=== PATIENT | male | born 1975 | race Caucasian/White ===

== ENCOUNTER 2022-08-08 10:22 | Emergency (ER) | payer OTHER ==
[2022-08-08 10:38] VITALS: BMI 27.3
[2022-08-08] MEDS ORDERED: HEPARIN NA (PORCINE) 5,000 UNITS/ML 1ML VIAL IVPUSH ONE (11:03)
[2022-08-08] MEDS ORDERED: ASPIRIN 325 MG TABLET PO ONE (11:03)
[2022-08-08] MEDS ORDERED: morphine CARPU-JECT 4 MG/1 ML DISP.SYRIN IVPUSH ONE (11:11)
[2022-08-08] MEDS ORDERED: ASPIRIN 81 MG CHEWABLE TABLETS ONE (11:12)
[2022-08-08] MEDS ORDERED: HEPARIN NA (PORCINE) 5,000 UNITS/ML 1ML VIAL ONE (11:12)
[2022-08-08] MEDS ORDERED: ATORVASTATIN CA 80 MG TABLET (FP) PO ONE (11:13)
[2022-08-08] MEDS ORDERED: TICAGRELOR 60 MG TABLET PO STA (11:13)
[2022-08-08] MEDS ORDERED: morphine SULFATE 4 MG/ML VIAL ONE (11:16)
[2022-08-08] MEDS ORDERED: ASPIRIN 81 MG CHEWABLE TABLETS PO ONE (11:20)
[2022-08-08] MEDS ORDERED: ATORVASTATIN CA 80 MG TABLET (FP) ONE (11:20)
[2022-08-08] MEDS ORDERED: TICAGRELOR 90 MG TABLET PO ONE (11:20)
[2022-08-08 11:44] LABS: BASO % 0.8 % (0-2.0); EOS % 1.8 % (0-4.5); HEMATOCRIT 45.6 % (35.4-49); HEMOGLOBIN 15.3 GM/dL (11.7-16.9); MCH 32.3 pg (25.7-33.7); MCHC 33.5 g/dl (32.0-35.9); MEAN CELL VOLUME 96.4 fl (80-96); MEAN PLT VOLUME 9.9 fl (7.5-11.1); MONO % 5.3 % (3.8-10.2); NEUT % 46.1 % (42.8-82.8); PLATELET COUNT 197 10^3/uL (134-434); RBC 4.73 M/mm3 (4.00-5.60); RDW 13.7 % (11.9-15.9); WHITE BLOOD COUNT 12.2 K/mm3 (4.0-10.0)
[2022-08-08 11:46] VITALS: BP 123/85; PULSE 100; RESP 20; TEMP 98.2
[2022-08-08 12:09] LABS: CHLORIDE 107 mmol/L (98-107); SODIUM 145 mmol/L (136-145)
[2022-08-08 12:11] LABS: ALBUMIN 3.3 g/dl (3.4-5.0); BLOOD UREA NITROGEN 20.3 mg/dL (7-18); CALCIUM 9.3 mg/dL (8.5-10.1); GLUCOSE,RANDOM 156 mg/dL (74-106)
[2022-08-08 12:12] LABS: ANION GAP 13 MMOL/L (8-16); CO2 25 mmol/L (21-32); LIPASE 143 U/L (73-393)
[2022-08-08 12:14] LABS: SGPT/ALT 31 U/L (13-61)
[2022-08-08 12:15] LABS: CREATININE 1.9 mg/dL (0.55-1.3); SGOT/AST 26 U/L (15-37)
[2022-08-08 12:16] LABS: BILIRUBIN,TOTAL 0.6 mg/dL (0.2-1)
[2022-08-08 12:18] LABS: ALK PHOS 77 U/L (45-117)
[2022-08-08 12:24] LABS: ACTIVATED PTT 28.4 SECONDS (25.2-36.5); INR 1.08 (0.83-1.09); PROTHROMBIN TIME (PATIENT) 12.4 SEC (9.7-13.0)
[2022-08-08 12:25] LABS: LACTIC ACID 6.1 mmol/L (0.4-2.0)
== END 2022-08-08 11:37 | disposition short-term general hospital (02) ==
LOC: JER 10:22
PROC: 3E033GC Introduction of Other Therapeutic Substance into Peripheral Vein, Percutaneous Approach (ICD-10-PCS; principal; 2022-08-08)
PROC: 3E033NZ Introduction of Analgesics, Hypnotics, Sedatives into Peripheral Vein, Percutaneous Approach (ICD-10-PCS; 2022-08-08)
DX: I21.3 ST elevation (STEMI) myocardial infarction of unspecified site (principal)
CPT/HCPCS: 36415; 71045-TC-FY; 80053; 80307; 82962; 83605; 83690; 84484; 85025; 85610; 85730; 93005; 93010; 99291; J1644